=== PATIENT | female | born 1995 | race Caucasian/White ===

== ENCOUNTER 2018-03-14 21:23 | Inpatient (IN) | payer OTHER ==
[~2018-03-14] VITALS: Ht 172.7 cm; Wt 142.0 kg
[~2018-03-14 21:23] MED LIST: ACID CONTROL150 MG PO; BENADRYL25 MG PO; BENTYL20 MG PO; BIRTH CONTROL PATCH; LEVOXYL75 MCG PO; MELOXICAM7.5 MG PO; SPRINTEC1 EACH PO; TRAMADOL HCL50 MG PO
[2018-03-15] MEDS ORDERED: PRENATABS RX T1 EACH PO (02:00)
[2018-03-15] MEDS ORDERED: ZYRTEC10 M3 PO (02:01)
[2018-03-15] MEDS ORDERED: ACID REDUCER150 MG PO (02:01)
--- NOTE | 2018-03-15 08:11 | PR ---
[facility] [address] [facility] [place], [place] [address] Signed PP Progress Notes Datetime Report Generated by CPShukri: 03/15/2018 08:11 SUBJECTIVE: [id number] Pain: Within normal limits Nausea/Vomiting: Denies Flatus: Yes Bowel Movement: No Vital Signs: [id number] Vital Signs: Reviewed; Within Normal Limits EXAM: [id number] Cardiovascular: Normal Respiratory: Normal Abdomen/Uterus: Normal Lochia: Normal Vulva/Perineum: Not Done Breasts: Not Done CVA Tenderness: Normal Extremities: Normal Incision: Not Applicable Progress: Normal Exam Comments: Fundus difficult to palpate due to body habitus IMPRESSION/PLAN/PROCEDURES: [id number] Impression: Normal progression Plan: Continue present management Progress Notes: Pt seen and examined. Doing well. Ambulating, voiding, and tolerating full diet. Pain and lochia minimal. Breast and bottlefeeding last night but will try to transition to exclusive breast feeding today. No complaints. Hgb 12.8. Anticipate d/c home tomorrow. Signing Physician: Hima Mantilla DO Copies: ~ *Electronically Signed* 03/15/18 0811 HIMA MANTILLA DO PATIENT NAME: KASSIE ERAZO PROGRESS NOTE DATE OF : [birth year] PHYSICIAN: HIMA MANTILLA DO RPT #: [id number] REPORT IS CONFIDENTIAL AND NOT TO BE RELEASED WITHOUT AUTHORIZATION
--- NOTE | 2018-03-16 08:24 | PR ---
[facility] [address] [facility] [place], [place] [address] Signed PP Progress Notes Datetime Report Generated by CPN: 03/16/2018 08:24 SUBJECTIVE: [id number] Pain: Within normal limits Nausea/Vomiting: Denies Flatus: Yes Bowel Movement: Yes Vital Signs: [id number] Vital Signs: Reviewed; Within Normal Limits EXAM: [id number] Cardiovascular: Normal Respiratory: Normal Abdomen/Uterus: Normal Lochia: Normal Vulva/Perineum: Not Done Breasts: Not Done CVA Tenderness: Normal Extremities: Normal Incision: Not Applicable Progress: Not Applicable Exam Comments: Exam limited by obesity. No fundal tenderness and feels firm IMPRESSION/PLAN/PROCEDURES: [id number] Impression: Normal progression Plan: Discharge Progress Notes: Pt seen and examined. Doing very well. Ambulating, voiding, and tolerating full diet. Pain and lochia minimal. No fevers, chills, or other complaints. Has decided to bottlefeed. Desires d/c home today. Unsure of pp contraception plans. Will d/c home today, f/u 2 wks pp. Signing Physician: Hima Mantilla DO Copies: ~ *Electronically Signed* 03/16/18 0824 HIMA MANTILLA DO PATIENT NAME: KASSIE ERAZO EVI PROGRESS NOTE DATE OF : [birth year] PHYSICIAN: HIMA MANTILLA DO RPT #: [id number] REPORT IS CONFIDENTIAL AND NOT TO BE RELEASED WITHOUT AUTHORIZATION
== END 2018-03-16 10:00 | disposition home or self-care (01) | DRG 807 ==
LOC: FBCO 21:23 → FBC 21:55
PROVIDERS: ADMIT Obstetrics & Gynecology
PROC: 10E0XZZ Delivery of Products of Conception, External Approach (ICD-10-PCS; principal; 2018-03-14)
PROC: 10907ZC Drainage of Amniotic Fluid, Therapeutic from Products of Conception, Via Natural or Artificial Opening (ICD-10-PCS; 2018-03-14)
DX: O62.3 Precipitate labor (principal); Z37.0 Single live birth; Z3A.39 39 weeks gestation of pregnancy; O99.214 Obesity complicating childbirth; E66.01 Morbid (severe) obesity due to excess calories; O69.81X0 Labor and delivery complicated by cord around neck, without compression, not applicable or unspecified; Z79.899 Other long term (current) drug therapy; Z88.5 Allergy status to narcotic agent; O99.52 Diseases of the respiratory system complicating childbirth; J45.990 Exercise induced bronchospasm; O9A.22 Injury, poisoning and certain other consequences of external causes complicating childbirth; S30.861A Insect bite (nonvenomous) of abdominal wall, initial encounter; S40.862A Insect bite (nonvenomous) of left upper arm, initial encounter; S40.861A Insect bite (nonvenomous) of right upper arm, initial encounter; S80.862A Insect bite (nonvenomous), left lower leg, initial encounter; S80.861A Insect bite (nonvenomous), right lower leg, initial encounter; W57.XXXA Bitten or stung by nonvenomous insect and other nonvenomous arthropods, initial encounter; Y92.009 Unspecified place in unspecified non-institutional (private) residence as the place of occurrence of the external cause
CPT/HCPCS: 85027; J2590

== ENCOUNTER 2018-04-09 15:06 | Inpatient (IN) | payer OTHER ==
[~2018-04-09] VITALS: Ht 172.7 cm; Wt 133.4 kg
[~2018-04-09 15:06] MED LIST changes: +ACID REDUCER150 MG PO; +PRENATABS RX T1 EACH PO; +ZYRTEC10 M3 PO
[2018-04-09] MEDS ORDERED: ZOFRAN8 MG PO (15:27)
--- NOTE | 2018-04-09 19:04 | NUR ---
pt arrives in room 107 from er. Pt able to trasnfer to bed with SBA. Call light in reach. vss.
[2018-04-09] MEDS ORDERED: VENTOLIN HFA18 GM INH (19:08)
--- NOTE | 2018-04-09 19:16 | NUR ---
RECEIVED REPORT FROM EMERITA AVILA. WHITEBOARD UPDATED. pt RESTING IN BED WITH AT BEDSIDE. STATED PAIN IS "OKAY". IV BOLUS INFUSING. ICE CHIPS PROVIDED WITH EDUCATION. PAIN MANAGEMENT EDUCATION DONE. CALL LIGHT WITHIN REACH.
--- NOTE | 2018-04-09 21:23 | NUR ---
pt REQUESTED PAIN MEDICATION. ASSESSMENT DONE. MEDICATIONS ADMINISTERED SCHEDULED AND PRN (SEE MAR). RATED PAIN 8/10. AT BEDSIDE. EDUCATED ON PAIN MANAGEMENT AND UPDATED ON PLAN OF CARE. pt VERBALIZED UNDERSTANDING. IV POSITIONAL, INFUSING BOLUS. CALL LIGHT WITHIN REACH. WARM BLANKETS PROVIDED. NO FURTHER REQUESTS AT THIS TIME.
--- NOTE | 2018-04-09 23:17 | NUR ---
VITALS DONE AND CHARTED.
--- NOTE | 2018-04-09 23:24 | NUR ---
IV BEEPING. ERROR RESOLVED. pt STATED PAIN 08/07. DENIED NEED FOR MEDICATION AT THIS TIME. CALL LIGHT WITHIN REACH.
--- NOTE | 2018-04-10 00:07 | NUR ---
IV PUMP BEEPING. ERROR RESOLVED. pt RATED PAIN 8/10. PRN PAIN MED GIVEN (SEE MAR). AT BEDSIDE. CALL LIGHT WITHIN REACH.
--- NOTE | 2018-04-10 00:25 | NUR ---
IV PUMP BEEPING. pt VOMITING THIN GREEN LIQUID. pt REPORTED "I THINK THE PAIN MEDICATION IS TOO STRONG BECAUSE I THROW UP". PLAN TO DILUTE FURTHER AND RUN OVER A LONGER PERIOD OF TIME. pt AGREEABLE TO PLAN. COOL CLOTH PROVIDED. CALL LIGHT WITHIN REACH.
--- NOTE | 2018-04-10 00:35 | NUR ---
IV PUMP BEEPING. GUAZE AND CLAUDETTE WRAP APPLIED TO KEEP IV POSITIONED CORRECTLY. IVF INFUSING. CALL LIGHT WITHIN REACH.
--- NOTE | 2018-04-10 01:56 | NUR ---
ASSESSMENT AND VITALS DUE. TOURIST INFORMATION ASSISTANT IN ROOM TO DO VITALS. ASSESSMENT DONE. pt REPORTED 8/10 PAIN. PRN MEDICATION GIVEN (SEE MAR), USED PUMP TO INFUSE. pt UP TO BSC AND BACK TO BED. RESTING WITH EYES CLOSED. AT BEDSIDE. IVF INFUSING. SCDS ON. CALL LIGHT WITHIN REACH.
--- NOTE | 2018-04-10 02:00 | NUR ---
VITALS AND I&OS DONE AND CHARTED. BEDSIDE TABLE AND CALL LIGHT IN REACH. PT NEEDS NOTHING AT THIS TIME. INFORMED RN LISETH THAT SHE DIDN'T HAVE ANY OUT PUT THE LAST FOUR HRS AND SHE DID NOT HAVE TO URINATE AT THIS TIME WHEN I ASKED HER.
--- NOTE | 2018-04-10 03:21 | NUR ---
pt RESTING WITH EYES CLOSED. RESPIRATIONS REGULAR, RATE = 18. CALL LIGHT WITHIN REACH.
--- NOTE | 2018-04-10 03:40 | NUR ---
CALL LIGHT ON, pt REQUESTED PAIN MEDICATION FOR 8/10 PAIN. PRN MEDICATION GIVEN (SEE MAR). CALL LIGHT WITHIN REACH.
--- NOTE | 2018-04-10 04:50 | NUR ---
CALL LIGHT ON. pt REQUESTED ICE PACK FOR SHOULDER AND LOWER ABDOMEN. PROVIDED. RATED PAIN 6/10. CALL LIGHT WITHIN REACH.
--- NOTE | 2018-04-10 05:41 | NUR ---
pt REQUESTED PAIN MEDICATION FOR PAIN 10/07. PRN MED GIVEN (SEE MAR). CALL LIGHT WITHIN REACH. NO FURTHER REQUESTS AT THIS TIME.
--- NOTE | 2018-04-10 06:05 | NUR ---
MEDICATION DUE. pt TO BSC AND BACK TO BED. MEDICATION GIVEN, NEW BAG OF IVF HUNG. DENIES NAUSEA. RATES PAIN 7/10 AFTER GETTING BACK INTO BED. CALL LIGHT WITHIN REACH. NO FURTHER REQUESTS AT THIS TIME.
--- NOTE | 2018-04-10 06:16 | NUR ---
pt RESTED ON AND OFF DURING SHIFT. PAIN CONTROLLED WITH PRN MEDS X5. VOIDING QS, USING BSC TO REDUCE PAIN. EMESIS X2. IVF INFUSING, IV POSITIONAL. SCDS. NPO WITH ICE CHIPS FOR COMFORT. SBA. REMAINED AT BEDSIDE. USES CALL LIGHT APPROPRIATELY.
--- NOTE | 2018-04-10 07:41 | NUR ---
Pt in bed, awake at this time. HOB is elevated. Pt reports improved abd pain. Pt encouraged to take a walk, as she reports mild back pain, pt declined at this time. Pt denies need to void. Personal supplies and call light within reach.
--- NOTE | 2018-04-10 09:56 | NUR ---
PT DENIES ISSUES WITH DC AND IS PLANNING ON RETURNING HOME WHEN SHE IS DC'D.
--- NOTE | 2018-04-10 10:00 | NUR ---
Pt up in hallway walking, standby assist. Pt tolerated walk well. Pt back to room and showering at this time.
--- NOTE | 2018-04-10 12:40 | NUR ---
Pt resting at this time in bed, resp even and non labored. Personal supplies and call light wihin reach. No needs at this time. at bedside.
--- NOTE | 2018-04-10 12:47 | NUR ---
PT RESTING IN BED, ICE BAD ON ABDOMEN. SHE IS ALERT, SUPPORTED BY HER S.O. AT BS. PT STATED THAT SHE DIDN'T FEEL MUCH IMPROVEMENT SO FAR. ENCOURAGED HER TO USE PAIN SCALE TO DESCRIBE PAIN. EXTENDED A BLESSING, I WILL FOLLOW NEEDED
--- NOTE | 2018-04-10 14:00 | NUR ---
Pt assisted to bathroom. Pt reports abd pain is 4/10. Encouraged frequent ambulation. Personal supplies and call light within reach.
--- NOTE | 2018-04-10 14:07 | NUR ---
Pt up walking in hallways with , tolerating well.
--- NOTE | 2018-04-10 16:50 | NUR ---
Pt ambulated in hallway with , standby assist. Pt tolerated walk well.
--- NOTE | 2018-04-10 17:49 | NUR ---
PATIENT IN BED WATCHING TV, FAMILY IN ROOM. CALL LIGHT IN REACH. NO FURTHER NEEDS AT THIS TIME.
--- NOTE | 2018-04-10 19:20 | NUR ---
REPORT RECEIVED FROM EMERITA ROBERTSON. pt ALERT AND AWAKE. AT BEDSIDE. WHITEBOARD UPDATED. pt REQUESTED MELATONIN TO HELP HER SLEEP. PAIN MEDICATION GIVEN BY AILYN AT THIS TIME. pt RATED PAIN 8/10. WARM PACK PROVIDED FOR BACK PAIN. NO OTHER REQUESTS AT THIS TIME. CALL LIGHT WITHIN REACH.
--- NOTE | 2018-04-10 20:10 | NUR ---
pt REQUESTED MELATONIN TO SLEEP. DR HARRIS CALLED, ORDERED 10 MG MELATONIN AND REQUESTED THAT pt BE NPO AT MIDNIGHT. ORDERS ENTERED.
--- NOTE | 2018-04-10 22:10 | NUR ---
ASSESSMENT AND MEDICATIONS DUE. pt REQUESTED PAIN MEDICATION FOR 10/07 PAIN. ASSESSMENT DONE. SCDS ON. SCHEDULED MEDICATIONS AND PRN PAIN MED GIVEN (SEE MAR). pt IN BED WATCHING TV. pt STATED "I WAS THINKING OF TAKING ANOTHER WALK". ENCOURAGED TO AMBULATE. AT BEDSIDE. CALL LIGHT WITHIN REACH.
--- NOTE | 2018-04-10 23:41 | NUR ---
pt REQUESTED PAIN MEDS FOR 9/10 PAIN. EDUCATED ABOUT PAIN MANAGMENT AND ENCOURAGED INCREASED DOSE, pt AGREEABLE. PAIN MED GIVEN (SEE MAR). pt RESTING IN BED. CALL LIGHT WITHIN REACH.
--- NOTE | 2018-04-11 00:13 | NUR ---
ROUNDED ON pt. REMOVED ICE CHIPS. UPDATED WHITEBOARD. RESTING WITH EYES CLOSED, RESPIRATIONS REGULAR, RATE = 18. AT BEDSIDE. CALL LIGHT WITHIN REACH.
--- NOTE | 2018-04-11 02:16 | NUR ---
TO NURSES STATION TO REQUEST HEATING PACK. PROVIDED. ASSSESSMENT DONE. pt RESTING AFTER JUST AMBULATING TO TOILET. PAIN 08/07. pt WILL CALL WHEN READY FOR PAIN MEDICATION. CALL LIGHT WITHIN REACH.
--- NOTE | 2018-04-11 02:54 | NUR ---
pt REQUESTED PAIN MEDICATION FOR 10/10 PAIN. STATED "I'M TRYING TO SLEEP ON MY SIDE". CLARIFIED THAT PAIN IS WORSE AFTER MOVING AND EDUCATED ABOUT PAIN MANAGEMENT. PAIN MEDICATION GIVEN (SEE MAR). CALL LIGHT WITHIN REACH.
--- NOTE | 2018-04-11 04:06 | NUR ---
CALL LIGHT ON. pt REQUESTED ASSISTANCE TO TOILET AND BACK TO BED. PROVIDED NEW WARM PACK. CALL LIGHT WITHIN REACH.
--- NOTE | 2018-04-11 05:05 | NUR ---
pt RESTED ON AND OFF DURING SHIFT. PAIN CONTROLLED WITH PRN MEDS X4. VOIDING QS. ABLE TO AMBULATE TO TOILET. NO EMESIS. IVF INFUSING. SCDS. NPO AT MIDNIGHT. SBA. REMAINED AT BEDSIDE. USES CALL LIGHT FREQUENTLY.
--- NOTE | 2018-04-11 05:38 | NUR ---
pt RETURNED FROM AMBULATING IN LANE. REQUESTED PAIN MEDS FOR 10/10 PAIN. STATED "IT'S OKAY WHEN I'M WALKING BUT GETS BAD WHEN I LAY BACK DOWN". PAIN MED AND ABX GIVEN (SEE MAR). CALL LIGHT WITHIN REACH.
--- NOTE | 2018-04-11 06:22 | NUR ---
pt REPORTING NAUSEA. PRN ZOFRAN ADMINISTERED (SEE MAR) pt RATED PAIN 5/10 WHILE SITTING IN CHAIR. ENCOURAGED TO SIT IN CHAIR IF COMFORTABLE. CALL LIGHT WITHIN REACH.
--- NOTE | 2018-04-11 07:01 | NUR ---
UPDATED DR HARRIS ON pt VITAL SIGNS AND LABS. NO NEW ORDERS AT THIS TIME.
--- NOTE | 2018-04-11 07:25 | NUR ---
Pt sitting up in chair at this time. Pt reports abd pain is 3/10. Pt denies need to void. Personal supplies and call light within reach. Pt's at bedside. No needs at this time.
--- NOTE | 2018-04-11 09:57 | NUR ---
PATIENT IN BED BEDISDE. CALL LIGHT IN REACH. NO FURTHER NEEDS AT THIS TIME.
[2018-04-11] MEDS ORDERED: MELATONIN10 M2 PO (10:13)
[2018-04-11] MEDS ORDERED: TYLENOL325 MG PO (10:14)
[2018-04-11] MEDS ORDERED: TRIAMCINOLONE A60 M1 TOP (10:15)
--- NOTE | 2018-04-11 10:16 | NUR ---
MED REC COMPLETE
--- NOTE | 2018-04-11 12:33 | NUR ---
ADMIN MORPHINE 2MG IVP FOR REPORTS OF 7/10 ABD PAIN.
--- NOTE | 2018-04-11 13:14 | NUR ---
CALLED DR HARRIS REGARDING PT STATING SHE COULD HAVE AN ADVANCED DIET. HE SAID NO ADVANCING JUST SIPS OF WATER. WILL INFORM PT AND BRING HER A SIP.
--- NOTE | 2018-04-11 13:44 | NUR ---
PATIENT IN BED RESTING WITH EYES CLOSED. CALL LIGHT IN REACH. NO FURTHER NEEDS AT THIS TIME.
--- NOTE | 2018-04-11 15:15 | NUR ---
PT SLEEPING IN BED AT THIS TIME, RESP EVEN AND NON LABORED. PT RECENTLY UP IN HALLWAY WALKING WITH , TOLERATING WELL.
--- NOTE | 2018-04-11 15:31 | HP ---
[facility] [address] [place], [place] [address] Signed ADMISSION DATE: 04/09/2018 REASON FOR ADMISSION: Biliary-related pancreatitis. HISTORY OF PRESENT ILLNESS: This 22-year-old morbidly obese white woman presented to the emergency room with severe epigastric and right upper abdominal pain as well as posterior thoracic pain associated with vomiting. The patient has been working with Dr. Edmar Wayne and subsequently MEGHANN Workman, where a gallbladder ultrasound had been performed recently showing no sign of abnormality and a CCK-HIDA test done in late February showing an ejection fraction of 24%. She had an appointment to see Dr. Cheng in a week. Her pain severely worsened last night and associated with epigastric and posterior thoracic pain and she presented to the emergency room. She was evaluated thoroughly by Dr. Cheung where a CT scan was performed in addition to lab studies. Lab studies show an elevated white count of 12.7, normal electrolytes, but a lipase markedly elevated, nearly 14,000, as well as elevated amylase. Specifically, her lipase was 13,950 with amylase of 1980. Her triglycerides were elevated at 226, bilirubin normal at 1.2, AST 114, ALT 148, alkaline phosphatase 160. She is admitted for further evaluation and care. Of note, the patient drinks no alcohol at all really. She is one-month from her 2nd child, another child is two years of age. She is accompanied by her . Both of them are "between jobs." The patient has suffered some "bedbugs" with some residual hyperpigmentation of her arms. She notes she has since changed their bed and bedding. She has never had surgical intervention, she says. She does have underlying issue of asthma. MEDICATIONS: At admission include Zyrtec as needed 10 mg daily, Zofran 4 mg as needed for nausea, vitamin daily, and Zantac 150 mg p.o. daily. She says that she uses Symbicort inhaler for episodic asthma-type symptoms, though it is not listed on her usual medication list. Electronically Signed By: JAG HARRIS MD 04/11/18 1531 PATIENT NAME: KASSIE ERAZO HISTORY AND PHYSICAL DATE OF : [birth year] REPORT #: [id number] PHYSICIAN: JAG HARRIS MD PCP: SANGEETHA CONTRERAS REPORT IS CONFIDENTIAL AND NOT TO BE RELEASED WITHOUT AUTHORIZATION [facility] [address] [place] [id number] Signed ALLERGIES: She has no known drug allergies. SOCIAL HISTORY: She is as described. She has two children, one only a month old. REVIEW OF SYSTEMS: She denies any shortness of breath or actual chest pain. She is not currently having wheezing. She denies any dysphagia. She does have reflux-type symptoms. Her abdominal pain is mostly in the epigastric area. PHYSICAL EXAMINATION: GENERAL: This is an uncomfortable-looking white woman, accompanied by her . She is quite morbidly obese. HEENT: Her mucous membranes are slightly dry. Trachea is midline. CHEST: Clear. HEART: Regular. ABDOMEN: Obese, but soft. There is marked tenderness in the epigastric and in the right subcostal area. EXTREMITIES: Show no clubbing, cyanosis, or edema. LABORATORY STUDIES: White count 12.7, hematocrit 46.5, platelets 365,000. Creatinine 0.95, glucose 126, AST 114, ALT 148, alkaline phosphatase 160. Beta-HCG is negative. Triglycerides 226. Amylase 1980. Lipase 13,950. Bilirubin 1.2. Imaging studies included only the CT scan of the abdomen. My review shows the pancreas to have a hazy appearance with edema, but no fluid collection. There is no sign of pancreatic ductal dilatation that I can see. There is mild splenomegaly apparent. There are no gallstones that I see. There is diffuse inflammation of the gallbladder wall, however. ASSESSMENT: The patient has probably gallbladder sludge related pancreatitis. She does have elevated triglycerides, but not to the extent that would be likely to give pancreatitis, though it is obviously a known cause of pancreatitis. She has been having symptoms leading up to this, which likely were biliary colic. I have recommended admission to the hospital, fluid resuscitation, antibiotic administration, ulcer prophylaxis, and bowel rest. Cholecystectomy would be appropriate once clinical pancreatitis has resolved. I explained all this to the patient and her with drawings and so forth. They understand and agree. Electronically Signed By: JAG HARRIS MD 04/11/18 1531 PATIENT NAME: KASSIE ERAZO HISTORY AND PHYSICAL DATE OF : [birth year] REPORT #: [id number] PHYSICIAN: JAG HARRIS MD PCP: SNAGEETHA CONTRERAS REPORT IS CONFIDENTIAL AND NOT TO BE RELEASED WITHOUT AUTHORIZATION [facility] [address] [place], [place] [address] Signed MD GEOFFREY Decker/MORENA /[id number] cc: MEGHANN Workman MD Russell Barr Harrison, MD Phong Cheung Copies: SANGEETHA CONTRERAS ANDREW L MD HARRISON, RUSSELL BARR MD NGO,GRACE ~ Electronically Signed By: JAG HARRIS MD 04/11/18 1531 PATIENT NAME: KASSIE ERAZO HISTORY AND PHYSICAL DATE OF : [birth year] REPORT #: [id number] PHYSICIAN: JAG HARRIS MD PCP: SANGEETHA CONTRERAS REPORT IS CONFIDENTIAL AND NOT TO BE RELEASED WITHOUT AUTHORIZATION
--- NOTE | 2018-04-11 15:52 | NUR ---
PT IS SHOWERING AT THIS TIME. NO NEEDS. IN ROOM.
--- NOTE | 2018-04-11 18:30 | NUR ---
A&OX3. RA. D5LR @125ML/HR. UP IN HALLWAY STANDBY ASSIST. NPO. MORPHINE 2MG IVP.
--- NOTE | 2018-04-11 18:35 | NUR ---
PATIENT SITTING IN CHAIR WATCHING TV. IN ROOM. CALL LIGHT IN REACH. NO FURTHER NEEDS AT THIS TIME.
--- NOTE | 2018-04-11 19:00 | NUR ---
CHARGE ROUNDING DONE WITH DAY SHIFT CHARGE AND MARY RN. PATIENT RESTING IN RECLINER, IN THE ROOM. NO NEEDS AT THIS TIME.
--- NOTE | 2018-04-11 19:24 | NUR ---
IN ROOM FOR REPORT, PT IS IN THE RECLINER AND DENIES NEEDS AT THIS TIME. CALL LIGHT IS CLOSE.
--- NOTE | 2018-04-11 19:58 | NUR ---
PT IS WALKING IN THE HALLS AT THIS TIME WITH . SHE IS DOING WELL.
--- NOTE | 2018-04-11 20:30 | NUR ---
IN ROOM TO ASSESS PT AND ADMINISTER MEDICATIONS. ADMINISTERED MORPHINE FOR PAIN. PT DENIES FURTHER NEEDS AT THIS TIME CALL LIGHT IS CLOSE.
--- NOTE | 2018-04-11 23:00 | NUR ---
PT IS WALKING IN HALLS WITH .
--- NOTE | 2018-04-11 23:15 | NUR ---
V/S AND I&O DONE AND CHARTED.PICKED UP SOME ROOM MESSES, USED LINENS/BLANKETS.
--- NOTE | 2018-04-12 00:04 | NUR ---
ADMINITERED MELATONIN WHICH PT REQUESTED TO TAKE LATE. ALL WATER CUP WAS TAKEN AWAY AND PT DENIES FURTHER NEEDS. CALL LIGHT IS CLOSE.
--- NOTE | 2018-04-12 02:07 | NUR ---
PT RATES ABD PAIN AT 9/10. SHE ALSO REPORTS A HEADACHE. WE DISCUSSED HOW MORPHINE MAY CAUSE HEADACHE, GAVE PT A COOL WASH CLOTHE AND A WARM PACK FOR HER BACK. SHE DENIES FURTHER NEEDS AT THIS TIME. CALL LIGHT IS CLOSE.
--- NOTE | 2018-04-12 04:02 | NUR ---
PT IS RESTING WITH EYES CLOSED, RR IS EVEN AND NONLABORED. CALL LIGHT IS CLOSE.
--- NOTE | 2018-04-12 05:48 | NUR ---
PT REPORTS HEADACHE IS WORSE WHEN TAKING MORPHINE, WILL TALK WITH DR ESCOTO AND SEE WHAT ELSE SHE CAN HAVE. ALSO WILL NOTIFY HIM OF HER TEMP. PT DENIES FURTHER NEEDS. CALL LIGHT IS CLOSE.
--- NOTE | 2018-04-12 06:29 | NUR ---
PT WOKE UP SEVERAL TIMES THROUGH THE NIGHT REQUESTING PAIN MEDICINE. SHE HAD A HEADACHE MADE WORSE BY DOSES OF MORPHINE. TEMP THIS AM IS 101.[address] ESCOTO AND REQUEST CHANGE IN PAIN MEDS PER PT. SHE HAS BEEN INDEPENDENT IN THE ROOM WITH THE HELP OF HER . D5LR IS INFUSING AT 125MLS/HR. SHE HAS BEEN NPO SINCE MIDNIGHT INCASE SHE NEEDS SURGERY TODAY.
--- NOTE | 2018-04-12 06:57 | NUR ---
SPOKE WITH DR ESCOTO, NEW ORDERS RECEIVED TORB.
--- NOTE | 2018-04-12 07:00 | NUR ---
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 PT UP IN CHAIR, D5LR AT 125 INFUSING. REPORTS PAIN IN LOWER BACK WHEN IN BED AND NO PAIN WHEN IN CHAIR. TEMP ON 101.2. TYLENOL SUPOSSITORY ADMINISTERED. CALL LIGHT IN REACH. NPO AT THIS TIME. DENIES NEEDS.
--- NOTE | 2018-04-12 11:30 | NUR ---
PT UP TO SHOWER FOR HEPA-CLEANSE. DENIES PAIN.
--- NOTE | 2018-04-12 12:36 | NUR ---
PT SITTING IN CHAIR, ALERT AND ORIENTED. PT APPARENTLY RUNNING A TEMP-RM COOL TO HELP HER FEEL COOLER. HER IS CHILLED. PT STATED SHE IS TO HAVE LAP GLORIA THIS PM. WAITING FOR DR ESCOTO TO VISIT. PT ALSO SAID SHE IS ALITTLE BIT SCARED-SHE HAS NEVER HAD SURGERY BEFORE. EXPLAINED WHAT SHE COULD EXPECT, SHE SEEMED MORE AT EASE. PT DECLINED PRAYER AT THIS TIME, WILL FOLLOW NEEDED
--- NOTE | 2018-04-12 13:20 | NUR ---
PT OFF FLOOR TO OR
--- NOTE | 2018-04-12 15:41 | NUR ---
04/12/18 1541 Kylah Gatica 1974-PATIENT ARRIVED TO PACU ON 6L MASK RR EVEN. PATIENT REACTIVE TO VOICE SLIGHTLY OPENS EYES AND NODS HEAD NO TO PAIN, NODS HEAD YES TO BEING COMFORTABLE WHEN ASKED.4 LAP SITES TO ABDOMEN CDI WITH GAUZE AND TAPE. ICE APPLIED TO ABDOMEN. ST
--- NOTE | 2018-04-12 16:29 | NUR ---
PT ARRIVED TO FLOOR VIA STRETCHER. ABLE TO ASSIST IN TRANSFERING TO BED.DENIES PAIN OR NAUSEA AT THIS TIME. VSS. LAP SITES WITH PAUL ARE C/D/I x4. ICE WATER PROVIDED. CALL LIGHT IN REACH.
--- NOTE | 2018-04-12 17:20 | NUR ---
VSS, DENIES PAIN OR NAUSEA. ICE PACK TO ABDOMEN. TOLERATING CLEARS WELL. SODIUM PHOS INFUSING. CALL LIGHT INT REACH. DRESSING X4 C/D/I.
--- NOTE | 2018-04-12 18:20 | NUR ---
DENIES PAIN OR NAUSEA, ADVANSING DIET TO REGULAR FOR DINNER. LAP SITES C/D/I.
--- NOTE | 2018-04-12 18:29 | NUR ---
PT HAD GOOD DAY. WENT TO SURGERY FOR CHOLY. BACK TO FLOOR AT 1620. ADVANCED TO REG DIET. NO NAUSEA, NO PAIN. BOWEL TONES HYPOACTIE. NO FLATUS. D5LR AT 75. POST OP VITALS WNL.
--- NOTE | 2018-04-12 19:00 | NUR ---
CHARGE NURSE REPORT RECEIVED FROM EMMANUELLE CERON IN CHAIR, ON COUCH. NO NEEDS.
--- NOTE | 2018-04-12 19:10 | NUR ---
IN ROOM FOR REPORT, PT IS IN BED AT THIS TIME WITH ICEPACK IN PLACE. SHE DENIES PAIN AND NEEDS. CALL LIGHT IS CLOSE.
--- NOTE | 2018-04-12 20:20 | NUR ---
IN ROOM TO ASSESS PT AND ADMINISTER MEDICATIONS. PT REPORTS PAIN LOW AT THIS TIME, POSSIBLE GAS PAIN IN SHOULDER. DRESSINGS ARE CDI. SHE IS TOLERATING SMALL AMOUNTS OF FOOD AT THIS TIME. IS IN THE ROOM. PT STATES SHE HAS ALREADY AMBULATED IN THE HALLS AFTER SURGERY AND WILL AMBULATE AGAIN BEFORE GOING TO BED. PT DENIES FURTHER NEEDS AND CALL LIGHT IS CLOSE.
--- NOTE | 2018-04-12 21:13 | NUR ---
VITALS AND I&OS DONE AND CHARTED. BEDSIDE TABLE AND CALL LIGHT IN REACH.
--- NOTE | 2018-04-12 22:37 | NUR ---
PT WALKED IN THE LANE WITH , SHE DID 2 LAPS AROUND THE MEDSUR FLOOR. SHE REPORTS PAIN HAS INCREASED SO SHE IS GOING BACK TO BED TO REST. SHE WILL CALL WHEN SHE WANTS HER MELATONIN.
--- NOTE | 2018-04-12 23:44 | NUR ---
PT CALLED D/T BEEPING IV. SHE DENIES NEEDS AT THIS TIME. CALL LIGHT IS CLOSE.
--- NOTE | 2018-04-13 00:37 | NUR ---
ADMINISTERED NORCO AND MELATONIN. PT IS READY TO GO TO SLEEP AT THIS TIME. CALL LIGHT IS CLOSE.
--- NOTE | 2018-04-13 01:18 | NUR ---
PT IS RESTING WITH EYES CLOSED, RR IS EVEN AND NONLABORED. CALL LIGHT IS CLOSE.
--- NOTE | 2018-04-13 02:24 | NUR ---
PT IS RESTING WITH EYES CLOSED, RESPIRATIONS ARE EVEN AND NONLABORED. CALL LIGHT IS CLOSE.
--- NOTE | 2018-04-13 02:40 | NUR ---
VITALS AND I&OS DONE AND CHARTED. BEDSIDE TABLE AND CALL LIGHT IN REACH.
--- NOTE | 2018-04-13 04:04 | NUR ---
PT IS RESTING WITH EYES CLOSED, RESPIRATIONS ARE EVEN AND NONLABORED AT 93% ON CPOX. CALL LIGHT IS WITHIN REACH.
--- NOTE | 2018-04-13 05:05 | NUR ---
PT IS RESTING WITH EYES CLOSED, RESPIRATIONS ARE EVEN AND NONLABORED. CALL LIGHT IS WITHIN REACH.
--- NOTE | 2018-04-13 06:36 | NUR ---
PT IS TOLERATING A REGULAR DIET AND AMBULATED IN THE HALLS LAST NIGHT. HER DRESSINGS REMAIN CDI. HER BOWEL TONES ARE HYPOACTIVE AND SHE DOES NOT RECALL HAVING ANY FLATUS. SHE REPORTS SLEEPING WELL THROUGH THE NIGHT AND PAIN IS CONTROLLED WELL WITH 10MG OXYCODONE. SHE HOPE TO DC TODAY.
--- NOTE | 2018-04-13 06:43 | OR ---
[facility] [address], [place] [address] Signed DATE OF OPERATION: 04/12/2018 SURGEON: Davon Escoto MD PREOPERATIVE DIAGNOSES: 1. Cholecystitis. 2. Biliary pancreatitis. POSTOPERATIVE DIAGNOSES: 1. Cholecystitis with cholelithiasis. 2. Pancreatitis. PROCEDURE: Laparoscopic cholecystectomy with intraoperative cholangiogram. ESTIMATED BLOOD LOSS: None. FINDINGS: The gallbladder wall was thickened and the gallbladder had multiple 2 to 4 mm yellow cholesterol stones. The contrast flowed through the common bile duct into the duodenum with some mild resistance and the common bile duct was a little dilated. It is possible she might have several stones in the distal common bile duct, but we were not entirely sure during our intraoperative cholangiogram. INDICATIONS: Kassie is a 22-year-old obese female who has been having trouble after her baby was born one month ago with right upper quadrant abdominal pain. It has been radiating through to her back and her right shoulder. She had been to her primary care provider. Apparently, the ultrasound was negative and a HIDA scan was performed as well. She had been scheduled apparently to see me as an outpatient. In the meantime, she had a severe attack and ended up in the emergency room. She was admitted to Dr. Harris [facility]. She was found to have biliary pancreatitis with a lipase at 13,950. She was admitted, kept n.p.o. and started on Ancef. Her labs yesterday showed the lipase down to 1208, total bilirubin 0.6, AST 21, ALT 38, and alkaline phosphatase 90. Her beta-HCG was negative. White count was initially 11 and is actually up to about [address] Harris had to be out of town and so he asked me to take over her case. I met with Kassie and her . I know them from taking care of other family members. Kassie is very familiar with gallbladder surgery having several family members been through that. We had discussed the difference between laparoscopic and an open cholecystectomy. She Electronically Signed By: DAVON ESCOTO MD 04/13/18 0643 PATIENT NAME: KASSIE ERAZO OPERATIVE REPORT DATE OF : [birth year] REPORT #: [id number] PHYSICIAN: DAVON ESCOTO MD PCP: SANGEETHA CONTRERAS REPORT IS CONFIDENTIAL AND NOT TO BE RELEASED WITHOUT AUTHORIZATION [facility] [address], [place] [address] Signed understands there is risk including, but not limited to bleeding, infection, scarring, change in contour of the skin, damage to bowel, damage to main bile duct, incisional hernias, as well as the possible need for other procedures and in particular ERCP if she has retained common bile duct stones. She understands expected intraop and postop course. They had expressed understanding and wished to proceed. PROCEDURE NOTE: Kassie was taken into our operating room and placed in a supine position under general endotracheal tube anesthesia. We added Flagyl to her Ancef. She was already on subcutaneous heparin. SCDs were utilized. She was then prepped and draped in the usual sterile fashion. All trocars were placed in usual positions under direct visualization of camera without difficulty. She had saponification of fat around her omentum throughout the abdomen and even up onto the diaphragm. She had quite a bit of murky fluid up along the right gutter. We went ahead and irrigated and suctioned this out until clear. We were able to grasp the gallbladder and elevate that into the right upper quadrant. The gallbladder wall was not overly edematous or thickened. We were able to clear off the triangle of Calot mostly with blunt dissection. The cystic artery was clipped and divided. We then inserted our intraoperative cholangiocatheter into the cystic duct. The intraoperative cholangiogram showed some dilation to her common bile duct, although the contrast did flow into the duodenum with some mild pressure. We thought maybe there might be two or three small stones in the distal common bile duct and even with magnification, we were not entirely sure. After this, the cystic duct stump was secured with a PDS Endoloop and 2 clips were placed on the cystic duct stump to pete its location. The gallbladder was then removed from the gallbladder fossa with the help of the cautery and placed into an EndoCatch bag. The right upper quadrant was copiously irrigated and suctioned out until clear. After this, we used our laparoscopic suturing device to pass 0 Vicryl suture on either side of the subxiphoid trocar site. This was tied down to close this fascia primarily. The gas was then allowed to escape and all the trocars were removed along with the gallbladder. The gallbladder was opened on the back table by our circulating nurse and a picture was taken for photodocumentation. The fascia of the supraumbilical trocar site was then closed with interrupted [id number] and simple 0 Vicryl sutures. Local anesthetic was copiously injected into all trocar sites. Each trocar site was irrigated and suctioned out until clear. The skin and dermis of each trocar site were closed with interrupted 3-0 subcuticular Monocryl sutures. [place] were then used to reapproximate the skin edges. Dry gauze and tape were then applied. Kassie was then awakened from her anesthesia, extubated in the OR, and taken to recovery room in stable condition. Davon Escoto MD Electronically Signed By: DAVON ESCOTO MD 04/13/18 0643 PATIENT NAME: KASSIE ERAZO OPERATIVE REPORT DATE OF : [birth year] REPORT #: [id number] PHYSICIAN: DAVON ESCOTO MD PCP: SANGEETHA CONTRERAS REPORT IS CONFIDENTIAL AND NOT TO BE RELEASED WITHOUT AUTHORIZATION [address] [place], [place] [address] Signed ALB/MODL /[id number] cc: MD Edmar Decker MD Andrew L Bower, MD Linda Harries, PA Copies: JAG HARRIS MD, RUSSELL BARR MD BOWER, ANDREW L MD HARRIES, LINDA PA ~ Electronically Signed By: DAVON ESCOTO MD 04/13/18 0643 PATIENT NAME: KASSIE ERAZO OPERATIVE REPORT DATE OF : [birth year] REPORT #: [id number] PHYSICIAN: DAVON ESCOTO MD PCP: SANGEETHA CONTRERAS REPORT IS CONFIDENTIAL AND NOT TO BE RELEASED WITHOUT AUTHORIZATION
--- NOTE | 2018-04-13 06:47 | NUR ---
GAVE PT FRESH ICE PACKS AND SHE DENIES THE NEED FOR PAIN MEDS AT THIS TIME. CALL LIGHT IS CLOSE.
--- NOTE | 2018-04-13 07:34 | NUR ---
Pt resting at this time, eyes closed, resp even and non labored. Personal supplies and call light within reach. Personal supplies and call light within reach.
[2018-04-13] MEDS ORDERED: NORCO 10-325 T1 EACH PO (07:41)
--- NOTE | 2018-04-13 08:03 | DS ---
[facility] [address], [place] [address] Signed ADMISSION DATE: 04/09/2018 DISCHARGE DATE: 04/13/2018 FINAL DIAGNOSES: 1. Cholecystitis and cholelithiasis. 2. Pancreatitis. PROCEDURES: Laparoscopic cholecystectomy with intraoperative cholangiogram. HISTORY OF PRESENT ILLNESS: Kassie is a 22-year-old female who is 1 month from her 2nd baby. She was having trouble with right upper quadrant abdominal pain radiating through to her back in her right shoulder. She was being evaluated as an outpatient. Apparently, she had an ultrasound done that did not show any obvious stones. There was some concern about possible sludge. She ended up with a HIDA scan and I guess the ejection fraction was quite low. She was scheduled actually to see me as an outpatient about a week from now. In the meantime, she developed severe right upper quadrant abdominal pain and ended up coming to the local emergency room. HOSPITAL COURSE: Kassie had been evaluated in our local emergency room. She was admitted to Dr. Jag Harris, the on-call surgeon. There were concerns for biliary pancreatitis. She was kept n.p.o. and started on Ancef and IV fluids. She was slowly, but surely making progress. Her initial lipase being quite high above 13,000. Dr. Harris asked me to take over as he was scheduled to leave [facility]. I had met with Kassie and her yesterday and reviewed her chart thoroughly. She was feeling much better and her exam was quite benign. We decided to go ahead and take her to the operating room. She underwent an uncomplicated laparoscopic cholecystectomy with intraoperative cholangiogram. She had multiple small 2-4 mm yellow cholesterol stones inside the gallbladder. The gallbladder wall was thickened. She had dark murky fluid in her right gutter. The intraoperative cholangiogram showed what could be several small stones in the distal common bile duct. It was hard to know for sure on our small monitor in the OR. The intraoperative cholangiogram report is still pending. Her surgery came late afternoon, so we kept her overnight and she is doing quite well this morning. Her white count is going down from 16,000 down to 9.3. Her hepatic panel and lipase are still pending. On exam, her abdomen is obese, but quite benign. All incisions look fine. There are no issues in that regard. She is eating well and her pain has been well controlled with her 10 mg of hydrocodone. At this point, we are going to be discharging her to home. Electronically Signed By: DAVON ESCOTO MD 04/13/18 0803 PATIENT NAME: KASSIE ERAZO DISCHARGE SUMMARY DATE OF : [birth year] REPORT #: [id number] PHYSICIAN: DAVON ESCOTO MD PCP: SANGEETHA CONTRERAS REPORT IS CONFIDENTIAL AND NOT TO BE RELEASED WITHOUT AUTHORIZATION [address] [address] Signed DISCHARGE PLANS AND MEDICATIONS: Kassie will be discharged to home with a prescription for Dingle 10/325 one tablet p.o. q.6 hours p.r.n. for postoperative pain. We will dispense 30 tablets with no refills. She can resume any other chronic medications. She is going to take diet as tolerated. She should not do any heavy pushing, pulling, or lifting over about 20 pounds for a month and 50 pounds for a 2nd month and after that no restrictions. She can leave the incisions open to air. I removed the henry upon return in the office in 7 to 10 days. She can shower and bathe as usual. I have reviewed this with Kassie in detail. She has expressed understanding and agrees with above plan. Davon Escoto MD ALB/MODL /[id number] cc: MD Amos Decker MD Linda Harries, PA Andrew L Bower, MD Copies: JAG HARRIS MD, PHONG HARRISON, RUSSELL BARR MD HARRIES, LINDA PA BOWER, ANDREW L MD ~ Electronically Signed By: DAVON ESCOTO MD 04/13/18 0803 PATIENT NAME: KASSIE ERAZO DISCHARGE SUMMARY DATE OF : [birth year] REPORT #: [id number] PHYSICIAN: DAVON ESCOTO MD PCP: SANGEETHA CONTRERAS REPORT IS CONFIDENTIAL AND NOT TO BE RELEASED WITHOUT AUTHORIZATION
--- NOTE | 2018-04-13 08:32 | NUR ---
Iv fluids stopped and incision dressing(S) removed from x4 lap sites. Edmond remain intact to incisions. Incisions are well aproximated and no drainage noted.
--- NOTE | 2018-04-13 10:26 | NUR ---
PT PREPPING FOR DC. PHAR IN AND WAITING FOR RN, AT BS. EXTENDED A BLESSING, WILL FOLLOW NEEDED
== END 2018-04-13 11:08 | disposition home or self-care (01) | DRG 769 ==
LOC: ED 15:06 → MS 18:22
PROVIDERS: Colon & Rectal Surgery; ADMIT Surgery
PROC: BF101ZZ Fluoroscopy of Bile Ducts using Low Osmolar Contrast (ICD-10-PCS; 2018-04-12)
PROC: 0FT44ZZ Resection of Gallbladder, Percutaneous Endoscopic Approach (ICD-10-PCS; principal; 2018-04-12 13:30)
DX: O99.63 Diseases of the digestive system complicating the puerperium (principal); K85.10 Biliary acute pancreatitis without necrosis or infection; K80.10 Calculus of gallbladder with chronic cholecystitis without obstruction; O99.215 Obesity complicating the puerperium; E66.01 Morbid (severe) obesity due to excess calories; O99.53 Diseases of the respiratory system complicating the puerperium; J45.990 Exercise induced bronchospasm; Z79.899 Other long term (current) drug therapy
CPT/HCPCS: 00790; 36415; 74177; 74300; 80053; 82150; 82247; 82465; 83615; 83690; 83735; 84100; 84478; 84550; 84703; 85025; 88304; 94640; 96361; 96374; 96375; 96376; 99285-25; J0131; J0330; J0690; J1100; J1170; J1644; J1885; J2250; J2270; J2405; J2704; J3010; J3475; J7030; J7060; J7120; Q9967